=== PATIENT | male | born 1945 ===

== ENCOUNTER 2018-01-12 08:39 | Day surgery (SDC) | payer BC ==
[2017-09-08 14:45] VITALS: BMI 31.4
[2018-01-12] MEDS ORDERED: Lidocaine/Epinephrine 1% 1:100000 10 ML IJ ONE (10:49)
[2018-01-12] MEDS ORDERED: Bupivacaine 0.25% 20 ML INJ IJ ONE (10:49)
[2018-01-12] MEDS ORDERED: ceFAZolin IV 2 gm in Dextrose 2 GM/50 ML BAG IVPB ONE (11:11)
[2018-01-12] MEDS ORDERED: metroNIDAZOLE IV 500 mg/100 ml 500 MG/100 ML BAG ONE (11:11)
[2018-01-12] MEDS ORDERED: Propofol 10 mg/ml Inj (20 ML) ONE (11:13)
[2018-01-12] MEDS ORDERED: Midazolam 2 MG/2 ML VIAL ONE (11:13)
[2018-01-12] MEDS ORDERED: Phenylephrine 10 mg/ml Inj ONE (11:24)
[2018-01-12] MEDS ORDERED: HYDROmorphone 0.5 mg/0.5 ml ISec IVP PRN (11:57)
--- NOTE | 2018-01-12 12:10 | PCM.SURG1 ---
Surgeon's Initial Post Op Note - Surgeon's Notes Surgeon: Valentino Hsu MD Mailing Clerk: MARIA LUZ Meadows Type of Anesthesia: General Endo Anesthesia Administered By: AMBIKA Pre-Operative Diagnosis: Rectal Polyp Anterior Operative Findings: Rectal Polyp Anterior. Rectal Polyp Posterior Post-Operative Diagnosis: Rectal Polyp Anterior. Rectal Polyp Posterior Operation Performed: Rectal Polypectomy Anterior. Rectal Polypectomy Posterior Specimen/Specimens Removed: Rectal Polyp Anterior. Rectal Polyp Posterior Estimated Blood Loss: EBL {In ML}: 10 Blood Products Given: N/A Drains Used: No Drains Post-Op Condition: Good Date of Surgery/Procedure: 01/12/18 Time of Surgery/Procedure: 12:10
[2018-01-12] MEDS ORDERED: Lactated Ringer's 500 ML IV ONE (13:30)
[2018-01-12 14:37] VITALS: PULSE 81; RESP 16; TEMP 98
[2018-01-12 16:39] VITALS: BP 149/74; O2SAT 98
--- NOTE | 2018-01-13 02:50 | OP ---
Copied To: Daniel Hsu MD Attending MD: Daniel Hsu MD PROCEDURE DATE: 01/12/2018 PREOPERATIVE DIAGNOSIS: Rectal polyp. POSTOPERATIVE DIAGNOSES: 1. Rectal polyp, anterior. 2. Rectal polyp, posterior PROCEDURES PERFORMED: 1. Excision of the rectal polyp anteriorly. 2. Excision of the rectal polyp posteriorly. SURGEON: The procedure was done by Daniel diaz MD. PNEUMATIC TUBE REPAIRER: ANGEL Meadows ANESTHESIA: General anesthesia with LMA. ESTIMATED BLOOD LOSS: Around 10 mL. DRAINS: None. PATHOLOGY: The rectal polyp anterior and rectal polyp posterior were sent for the pathology. COMPLICATIONS: None. INTRAOPERATIVE FINDINGS The patient had large rectal polyp posteriorly and very small rectal polyp anteriorly. DESCRIPTION OF PROCEDURE: On intraoperative steps, this is a 72-year-old male who was diagnosed with a large rectal polyp and patient was consented for excision of rectal polyp, brought to the OR, placed supine on the operating table. After induction of anesthesia, the patient was placed in lithotomy position and perineal area was prepped and draped. The anterior and posterior rectal polyps were identified, and the posterior rectal polyp was resected using the Endo FIDENCIO, and it was reinforced with 3-0 PDS V-Loc suture to prevent the postop bleeding, and now the anterior polyp was also resected with Endo FIDENCIO and the staple line was reinforced with 3-0 PDS V-Loc continuous suture, and after that, Surgicel packing was placed, and dry sterile dressing was applied. The packing should be removed after 3 hours after the operation. The patient was extubated in the OR, sent to the postanesthesia care unit in stable condition. Count of instrument and gauze was correct. There was no apparent complication. Daniel Hsu MD
== END 2018-01-12 16:05 | disposition home or self-care (01) ==
LOC: C.SDS 08:39
PROVIDERS: ATTEND Surgery Surgical Critical Care
DX: K62.1 Rectal polyp (principal)
CPT/HCPCS: 46922; 82948; 88305; J0690; J1885; J2250; J2370; J2405; J2704; J3010; J7120